=== PATIENT | female | born 1970 | race Caucasian/White ===

== ENCOUNTER 2019-02-18 08:00 | Outpatient (CLI) | payer OTHER ==
[2010-08-03 07:45] VITALS: BMI 27.3
== END 2019-02-18 23:59 | disposition home or self-care (01) ==
LOC: D.MAMMO 08:00
PROVIDERS: ATTEND Family Medicine
DX: Z12.31 Encounter for screening mammogram for malignant neoplasm of breast (principal)

== ENCOUNTER 2020-04-08 07:15 | Day surgery (SDC) | payer OTHER ==
[2020-04-07 17:30] LABS: BASOPHILS 0.7 % (0-2); EOSINOPHILS 1.9 % (0-7); HEMATOCRIT 45.1 % (36.0-48.0); HEMOGLOBIN 14.4 g/dL (12-16); IMMATURE GRANULOCYTES 0.1 % (0-5); LYMPHOCYTES 33.3 % (15-50); MCH 27.3 pg (26.0-34.0); MCHC 31.9 g/dL (31.0-37.0); MCV 85.4 fL (80.0-100.0); PLATELET COUNT 355 10x3/uL (130-400); RBC 5.28 10x6/uL (4.00-5.40); RDW 19.9 % (11.5-14.5); WBC 8.2 10x3/uL (4.8-10.8)
[2020-04-07 17:37] LABS: CALC OSMOLALITY 278 mosm/kg (275-300); CHLORIDE - SERUM 105 mmol/L (98-107); CREATININE - SERUM 0.8 mg/dL (0.6-1.3); GLUCOSE 110 mg/dL (74-106); POTASSIUM - SERUM 4.6 mmol/L (3.5-5.1); SODIUM 140 mmol/L (136-145); UREA NITROGEN 10 mg/dL (7-18); eGFR NON AFRICAN AMERICAN 80 mL/min (90-120)
[~2020-04-08] VITALS: Ht 152.4 cm; Wt 75.3 kg
[~2020-04-08 07:15] MED LIST: CYMBALTA20 MG PO; CYMBALTA60 MG PO; HYDROCODON-ACE1 EA10 PO; JARDIANCE10 MG PO; KLONOPIN1 MG PO; LISINOPRIL10 MG PO; MACROBID100 MG PO; OMEPRAZOLE40 MG PO; [UNRECOGNIZED DRUG - OTHER]
[2020-04-08 07:44] VITALS: BP 106/66; Ht 152.4 cm; Wt 75.3 kg
[2020-04-08] MEDS ORDERED: HYDROCODON-ACE1 EA10 PO (11:15)
--- NOTE | 2020-04-08 12:59 | NUR ---
1256 IV REMOVED AND INSTRUCTIONS GIVEN
--- NOTE | 2020-04-08 13:00 | NUR ---
1256 PT VOIDED X1 LARGE AMT. URINE NOTED IN BED. BANDAID CDI
--- NOTE | 2020-04-08 13:46 | OP ---
PATIENT NAME: JUANPABLO NEUMANN MEDICAL RECORD: [id number] :66 LOCATION:D.OPS ADMISSION DATE: SURGEON: DAYO MANRIQUE MD DATE OF OPERATION: 04/08/2020 PREOPERATIVE DIAGNOSES: 1. Gallstones. 2. Diabetes mellitus. 3. Hypertension. POSTOPERATIVE DIAGNOSES: 1. Gallstones. 2. Diabetes mellitus. 3. Hypertension. PROCEDURE: Laparoscopic cholecystectomy. SURGEON: Dayo Manrique MD REPORT OF PROCEDURE: The patient's abdomen was prepped and draped in sterile fashion. A cutdown was made on the superior aspect of the umbilicus, 0 Vicryls were placed in the fascia bilaterally and the fascia was incised with 15-blade. I then bluntly entered the peritoneal cavity and placed a 12-mm Alex port. Under direct visualization, a 5-mm trocar was placed in the epigastrium and two more 5-mm trocars were placed in the right subcostal region. The gallbladder was grasped and elevated. There was no sign of any inflammatory changes. The cystic artery and cystic duct were dissected free and I had my critical view of safety. These were clipped proximally and distally and ligated in standard fashion. The gallbladder was then taken off the liver bed using electrocautery and placed into the right upper quadrant. Any bleeding from the liver bed was then treated with electrocautery. We irrigated out the right upper quadrant and assured there was no sign of any bleeding or bile leakage. At this point, the ports and insufflation were then removed and the gallbladder was taken out through the umbilicus. The umbilical fascia was closed with interrupted 0 Vicryls times 3. The wounds were then irrigated out with normal saline and infused with 10 mL of 0.25% Marcaine with epinephrine. The skin incisions were all closed with subcutaneous 5-0 Monocryl and dressed appropriately. COMPLICATIONS: None. CONDITION: Stable. ANESTHESIA: General endotracheal and local. BLOOD LOSS: Minimal. TRANSINT:[id number] Voice Confirmation ID: [id number] DOCUMENT ID: [id number] OPERATIVE REPORT [id number] JUANPABLO NEUMANN DAYO MANRIQUE MD at 1346 CC: ROCKY PHELPS [id number] DICTATION DATE: 04/08/20 1117 LPN: 04/08/20 1156 DEP SDC 04/08/20 [facility] [address] [place] [address]
== END 2020-04-08 13:00 | disposition home or self-care (01) ==
LOC: D.OPS 07:15
PROVIDERS: ATTEND Surgery
DX: K80.80 Other cholelithiasis without obstruction (principal); E11.9 Type 2 diabetes mellitus without complications; I10 Essential (primary) hypertension; Z79.84 Long term (current) use of oral hypoglycemic drugs